=== PATIENT | male | born 1960 | race Caucasian/White ===

== ENCOUNTER 2019-01-25 18:20 | Inpatient (IN) ==
[2019-01-25] MEDS ORDERED: Clindamycin 600 MG/50 ML 600 MG/50 ML IV.SOLN IVPB ONE (19:26)
--- NOTE | 2019-01-25 19:33 | Emergency Department Note ---
Disposition Clinical Impression: Cellulitis of right anterior lower leg Disposition: Admitted As Inpatient Condition: Good Referrals: Rickey Simon MD [Primary Care Provider] - Time of Disposition: 20:50 Extremity Problem HPI - General Chief complaint: ED Extremity Problem,Nontraumatic Stated complaint: Cellulitis of lower right leg Time Seen by Provider: 01/25/19 18:44 Source: patient Mode of arrival: private vehicle Limitations: no limitations Nursing Notes Reviewed: Yes Vital Signs Reviewed: Yes - History of Present Illness HPI Narrative: Patient presents to the ED with concern that he may have cellulitis in his right leg again. He noticed that it was red today around noon was warm to the touch. He also developed some chills today and when he took his temperature at home was 101.9 around 5:30. He did not take any Tylenol or Motrin prior to coming to the ED. He does report some very mild discomfort in the leg. He had a bad case of cellulitis in this leg back in May and also developed an abscess that had to be drained requiring hospitalization. He has a history of venous stasis and has had several ulcers and infections in the past. Other medical history is only notable for high blood pressure. Pain Scale: 3 - Related Data Home Medications Medication Instructions Recorded Confirmed Atenolol/Chlorthalidone [Tenoretic 1 tab PO DAILY 05/12/18 01/25/19 100 Tablet] Cetirizine HCl [Zyrtec] 10 mg PO DAILY 01/25/19 01/25/19 Famotidine [Pepcid] 20 mg PO BID 01/25/19 01/25/19 Allergies Allergy/AdvReac Type Severity Reaction Status Date / Time ibuprofen [From Motrin IB] Allergy Rash Verified 01/25/19 18:27 Constitutional: Reports: as per HPI, fever, chills. Denies: weakness, weight change Eyes: Denies: eye pain, eye discharge, vision change ENT ED: Denies: ear pain, throat pain, dental pain, hearing loss, epistaxis, congestion, dysphagia Cardiovascular: Denies: chest pain, palpitations, dyspnea on exertion, edema, s yncope Respiratory: Denies: cough, dyspnea, wheezes, hemoptysis, stridor Gastrointestinal: Denies: abdominal pain, nausea, vomiting, diarrhea, constip ation, hematemesis, melena, hematochezia Genitourinary: Denies: urgency, dysuria, frequency, hematuria Musculoskeletal: Denies: back pain, neck pain, arthralgia, myalgia Integumentary: Reports: as per HPI (redness and warmth RLE) Neurological: Denies: headache, weakness, numbness, paresthesias, confusion, abnormal gait, vertigo Psychiatric: Denies: anxiety, depression, suicidal thoughts, homicidal thoughts, auditory hallucinations, visual hallucinations Endocrine: Denies: fatigue Hematological/Lymphatic: Denies: easy bleeding, easy bruising Allergic/Immunologic: Denies: facial swelling, urticaria Past Medical History - Past Medical History Medical history: Reports: hypertension, other Surgical history: Reports: orthopedic, other Psychiatric history: Reports: no psych history - Social History Smoking Status: Never smoker Smokeless Tobacco Status: No Alcohol use: Reports: rarely Drug use: Reports: none Physical Exam - General Limitations: no limitations General appearance: alert, in no apparent distress, obese - Head Head exam: atraumatic, normocephalic, normal inspection - Eye Eye exam: Present: normal appearance, PERRL, EOMI - Neck Neck exam: Present: normal inspection, full ROM, trachea midline - Chest Chest inspection: Present: normal inspection, symmetric chest wall rise - Respiratory Respiratory exam: Present: normal lung sounds bilaterally - Cardiovascular Cardiovascular exam: Present: regular rate, normal rhythm, normal heart sounds - Abdominal Exam Abdominal exam: Present: soft, Non-Tender. Absent: tenderness, distention, guarding, rebound, rigidity - Extremities Exam Extremities exam: Present: full ROM, normal capillary refill - Expanded Lower Extremity Exam Knee exam: Present: normal inspection, full ROM Lower leg exam: Present: swelling (mild, bilaterally, 1+ pitting on R), erythema (and warmth to RLE) Ankle exam: Present: normal inspection, full ROM Foot/toe exam: Present: normal inspection, full ROM Neurovascular/Tendon exam: Absent: motor deficit, sensory deficit, tendon deficit - Neurological Exam Neurological exam: Present: alert, oriented X3 - Psychiatric Psychiatric exam: Present: normal affect, normal mood - Skin Skin exam: Present: warm, dry, intact, normal color Course Course Narrative: Patient presents to the ED complaining of redness, swelling, warmth in his right lower extremity along with fever and chills concerning for cellulitis. On arrival he has a low-grade temperature 99.9. He was initially very hypertensive on arrival but this improved with changing cuff and repeat measurements without intervention. Right lower extremity is very red and warm to the touch with skin changes consistent with cellulitis. No signs or symptoms concerning for DVT at this time. Laboratory studies will be performed given his reported fever and chills. Will go ahead and start with IV antibiotics. - Reevaluation(s) Reevaluation #1: Laboratory studies show leukocytosis with left shift. Discussed with patient admission for IV antibiotics and he reluctantly agreed. I spoke to hospitalist evp chief exploration officer, Dr. Phoenix, who has accepted the patient. Time: 21:07 Vital Signs Temperature 99.9 F H 01/25/19 18:21 Pulse Rate 82 01/25/19 18:21 Respiratory Rate 22 01/25/19 18:21 Blood Pressure 202/69 01/25/19 18:21 O2 Sat by Pulse Oximetry 91 01/25/19 18:21 Temperature 99.9 F H 01/25/19 18:21 Pulse Rate 75 01/25/19 20:19 Respiratory Rate 20 01/25/19 20:19 Blood Pressure 94/78 01/25/19 20:19 O2 Sat by Pulse Oximetry 95 01/25/19 20:19 Oxygen Delivery Oxygen Delivery Room Air Extremity Problem, Nontraumati - Differential Diagnosis Likely: cellulitis. Unlikely: deep venous thrombosis - Medical Records Medical records reviewed: Yes I reviewed the patient's medical records. - Lab Data Lab results reviewed: Yes I reviewed the patient's lab results. Result diagrams: 01/25/19 19:49 01/25/19 19:49 Lab Results 01/25/19 01/25/19 01/25/19 Range/Units 19:49 19:49 19:49 WBC 22.2 H (4.3-11.1) K/mcL RBC 4.73 (4.19-5.50) M/mcL Hgb 13.5 (12.9-16.9) g/dL Hct 41.5 (37.5-50.1) % MCV 87.7 (83.0-100.0) fL MCH 28.5 (28.0-33.3) pg MCHC 32.5 (31.6-35.5) g/dL RDW 13.2 (11.5-14.5) % Plt Count 229 (140-400) K/mcL MPV 9.8 (9.4-12.4) fL Immature Gran % 0.4 (0-4) % Seg Neutrophils % 93.3 % Lymphocytes % 1.8 % Monocytes % 4.3 % Eosinophils % 0.0 % Basophils % 0.2 % Neutrophils # 20.7 H (1.6-8.9) K/mcL Lymphocytes # 0.4 L (0.6-4.6) K/mcL Monocytes # 1.0 (0.0-1.3) K/mcL Eosinophils # 0.0 (0.0-0.6) K/mcL Basophils # 0.0 (0.0-0.2) K/mcL Sodium 134 L (136-145) mEq/L Potassium 3.8 (3.5-5.1) mEq/L Chloride 97 L (98-107) mEq/L Carbon Dioxide 29 (23-29) mEq/L BUN 18 (6-20) mg/dL Creatinine 1.33 H (0.70-1.30) mg/dL Est GFR ( Amer) > 60 (> 60) Est GFR (Non-Af Amer) 55 L (> 60) BUN/Creatinine Ratio 14 (6-26) Glucose 105 (70-105) mg/dL Calculated Osmolality 280 (280-300) Lactic Acid 1.4 (0.5-2.2) mmol/L Calcium 9.8 (8.6-10.3) mg/dL
[2019-01-25 20:04] LABS: Basophils % 0.2 %; Hematocrit 41.5 % (37.5-50.1); Hemoglobin 13.5 g/dL (12.9-16.9); Immature Granulocytes % 0.4 % (0-4); Lymphocytes # 0.4 K/mcL (0.6-4.6); Lymphocytes % 1.8 %; Mean Corpuscular HGB Conc 32.5 g/dL (31.6-35.5); Mean Corpuscular Hemoglobin 28.5 pg (28.0-33.3); Mean Corpuscular Volume 87.7 fL (83.0-100.0); Mean Platelet Volume 9.8 fL (9.4-12.4); Monocytes % 4.3 %; Neutrophils # 20.7 K/mcL (1.6-8.9); Platelet Count 229 K/mcL (140-400); Red Blood Count 4.73 M/mcL (4.19-5.50); Red Cell Distribution Width 13.2 % (11.5-14.5); Segmented Neutrophils % 93.3 %; White Blood Count 22.2 K/mcL (4.3-11.1)
[2019-01-25 20:22] LABS: BUN/Creatinine Ratio 14 (6-26); Blood Urea Nitrogen 18 mg/dL (6-20); Calcium 9.8 mg/dL (8.6-10.3); Carbon Dioxide 29 mEq/L (23-29); Chloride 97 mEq/L (98-107); Glucose 105 mg/dL (70-105); Osmolality,Calculated 280 (280-300); Potassium 3.8 mEq/L (3.5-5.1); Sodium 134 mEq/L (136-145); eGFR For African Americans > 60 (> 60); eGFR For Non-African Americans 55 (> 60)
[2019-01-25] MEDS ORDERED: Clindamycin 600 MG/50 ML 600 MG/50 ML IV.SOLN IVPB SCH (21:00)
[2019-01-26] MEDS: Clindamycin 600 MG/50 ML 600 MG/50 ML IV.SOLN IVPB SCH ×3 (03:12→19:55)
[2019-01-26] MEDS ORDERED: Clindamycin 600 MG/50 ML 600 MG/50 ML IV.SOLN IVPB SCH (04:00)
[2019-01-26] MEDS: Famotidine 20 MG TABLET PO SCH ×2 (07:29→15:51)
[2019-01-26] MEDS: Loratadine 10 MG TABLET PO SCH (08:32)
--- NOTE | 2019-01-26 12:25 | Internal Med History&Physical ---
Date of Encounter: 01/26/19 Time of Encounter: 11:50 Assessment and Plan (1) Cellulitis of right anterior lower leg Current visit: Yes Status: Acute He has been started on IV clindamycin. Lactobacillus will be added. CT will be done to evaluate for recurrent abscess. (2) Azotemia Current visit: Yes Status: Acute Duration unknown. Creatinine was WNL at 1.04 on 05/14/2018. Hold a tenolol/chlorthalidone, start IV fluids, and monitor renal indices. (3) Gout Current visit: Yes Status: Chronic Asymptomatic at present. Recheck uric acid level in a.m. Qualifiers: Gout site: unspecified site Gout etiology: unspecified cause Chronicity: chronic Presence of tophus: without tophus Qualified Code(s): M1A.9XX0 - Chronic gout, unspecified, without tophus (tophi) (4) HTN (hypertension) Current visit: No Status: Chronic Hold atenolol/chlorthalidone due to azotemia. Start atenolol and monitor blood pressure. Qualifiers: Hypertension type: essential hypertension Qualified Code(s): I10 - Essential (primary) hypertension Internal Medicine - H&P: HPI Chief complaint: Right leg redness, fevers and chills Admitted From: Emergency Dept Plans for Post Hospital Care: Home History of present illness: Mr. Carr is a 58 year old male who came to emergency room stating he had onset of fevers and chills with headache approximately noon the day of admission. A few hours later he noticed redness developing in the right lower leg. He came to emergency room and was evaluated and was found to have cellulitis of the right leg. He had significant leukocytosis with left shift present on differential. He was started on IV antibiotics and admitted to [facility] floor for ongoing care needs. He had a 5.7 x 1.2 cm abscess drained from the right lower 05/12/2018. Culture grew group C streptococcus. He denies any injury or trauma to the right lower leg. He has had no recurrent cellulitis since the May 2018 incident. Musko skeletal history is significant for gout, left hip replacement 2004, right hip replacement 2014, and left knee meniscus surgery and injection. Past Med Surg Social Fam HX - Past Medical History Medical history: hypertension, other Additional medical history: venous stasis Psychiatric history: no psych history - Past Surgical History Surgical History: orthopedic, other Additional surgical history: bilateral hips. left knee - Social History Smoking Status: Never smoker Smokeless Tobacco Status: No Alcohol use: rarely Drug use: none Internal Medicine - H&P: Meds Atenolol/Chlorthalidone [Tenoretic 100 Tablet] 1 tab PO DAILY 05/12/18 [History] Cetirizine HCl [Zyrtec] 10 mg PO DAILY 01/25/19 [History] Famotidine [Pepcid] 20 mg PO BID 01/25/19 [History] Allergy/AdvReac Type Severity Reaction Status Date / Time ibuprofen [From Motrin IB] Allergy Rash Verified 01/25/19 18:27 All Systems PM: A 10-system review of systems was performed and is negative for pertinent findings except as documented above in the HPI. Review of systems: Gen.: His weight has remained stable at approximately 195 kg since April [address] [facility] hospitalization. Cardiovascular: He has history of hypertension but denies UT heart failure angina DVT or pulmonary embolus. He has dyspnea on exertion. Respiratory: He is a lifelong nonsmoker and denies chronic lung disease GI: He denies disorders of his liver gallbladder or exocrine pancreas : He denies hematuria dysuria or kidney stones Neurologic: He denies large distribution strokes or seizures. Endocrine: He denies diabetes thyroid disease or hyperlipidemia Hematology/oncology: He denies blood disorders cancers or anemia Psychiatric: He denies anxiety depression or other mental health issues. Musko skeletal: As per history of present illness Dermatologic: He has been diagnosed with psoriasis and follows with a real estate executive assistant as needed. - Constitutional Vitals: Temp Pulse Resp BP Pulse Ox 100.0 F H 58 17 138/71 95 01/26/19 10:56 01/26/19 10:56 01/26/19 10:56 01/26/19 10:56 01/26/19 10:56 Exam: Gen.: He is well-developed obese male lying in bed who appears in no acute distress HEENT: Head is atraumatic and normocephalic. Eyes: EOMI. There is no scleral icterus. Mouth: Mucosa is moist. Neck: Supple and nontender. There is no thyromegaly or adenopathy noted. Heart: Regular without murmurs gallops or ectopics Lungs: No wheezes or crackles are heard. Abdomen: Soft and nontender. No masses or guarding are noted. Extremities: There is significant erythema on nearly all of the right lower leg. No vesicles or drainage areas are seen. The foot is not involved. He has tinea pedis in the interdigital area between the third and fourth toes on the right foot. No open areas are noted otherwise on the right lower leg. The left leg shows chronic venous stasis pigmentation changes. Neurologic: Mental status: He is talkative and a good historian. Cranial nerves: Smile is symmetric. Forehead wrinkles bilaterally. Tongue protrudes midline. EOMI. Motor: There is no pronator drift. Cerebellar: Finger to nose is intact bilaterally. Skin: Warm and dry Internal Med - H&P Results - Labs CBC & Chem 7: 01/25/19 19:49 01/25/19 19:49 Labs: Short CBC 01/25/19 Range/Units 19:49 WBC 22.2 H (4.3-11.1) K/mcL Hgb 13.5 (12.9-16.9) g/dL Hct 41.5 (37.5-50.1) % Plt Count 229 (140-400) K/mcL Neutrophils # 20.7 H (1.6-8.9) K/mcL BMP 01/25/19 19:49 Sodium 134 L Potassium 3.8 Chloride 97 L Carbon Dioxide 29 BUN 18 Creatinine 1.33 H Glucose 105 Calcium 9.8 - VTE Reasons for not Prescribing Prophylaxis: Treatment not Indicated - Low risk for VTE
[2019-01-26] MEDS: 0.45 % Sodium Chloride w/KCl 20 MEQ/1,000 ML MLS IVC SCH (15:52)
[2019-01-26] MEDS: Lactobacillus 1 EACH CAP.SPRINK PO SCH (19:54)
[2019-01-27] MEDS: 0.45 % Sodium Chloride w/KCl 20 MEQ/1,000 ML MLS IVC SCH ×2 (01:06→11:04)
[2019-01-27] MEDS: Clindamycin 600 MG/50 ML 600 MG/50 ML IV.SOLN IVPB SCH ×3 (04:35→19:48)
[2019-01-27] MEDS: *HR* Enoxaparin 40 MG/0.4 ML SYRINGE SQ SCH (04:40)
[2019-01-27] MEDS: Lactobacillus 1 EACH CAP.SPRINK PO SCH ×2 (08:09→19:49)
[2019-01-27] MEDS: Loratadine 10 MG TABLET PO SCH (08:10)
[2019-01-27] MEDS: Famotidine 20 MG TABLET PO SCH ×2 (08:10→16:36)
[2019-01-27 10:26] LABS: Basophils % 0.3 %; Eosinophils # 0.1 K/mcL (0.0-0.6); Eosinophils % 0.6 %; Hematocrit 36.8 % (37.5-50.1); Hemoglobin 12.4 g/dL (12.9-16.9); Immature Granulocytes % 0.6 % (0-4); Lymphocytes # 0.5 K/mcL (0.6-4.6); Lymphocytes % 4.6 %; Mean Corpuscular HGB Conc 33.7 g/dL (31.6-35.5); Mean Corpuscular Hemoglobin 29.1 pg (28.0-33.3); Mean Corpuscular Volume 86.4 fL (83.0-100.0); Mean Platelet Volume 10.3 fL (9.4-12.4); Monocytes # 0.7 K/mcL (0.0-1.3); Monocytes % 6.8 %; Neutrophils # 9.4 K/mcL (1.6-8.9); Platelet Count 172 K/mcL (140-400); Red Blood Count 4.26 M/mcL (4.19-5.50); Red Cell Distribution Width 13.6 % (11.5-14.5); Segmented Neutrophils % 87.1 %; White Blood Count 10.8 K/mcL (4.3-11.1)
[2019-01-27 10:43] LABS: BUN/Creatinine Ratio 13 (6-26); Blood Urea Nitrogen 14 mg/dL (6-20); Calcium 9.1 mg/dL (8.6-10.3); Carbon Dioxide 26 mEq/L (23-29); Chloride 96 mEq/L (98-107); Glucose 162 mg/dL (70-105); Osmolality,Calculated 270 (280-300); Potassium 3.4 mEq/L (3.5-5.1); Sodium 128 mEq/L (136-145); eGFR For African Americans > 60 (> 60); eGFR For Non-African Americans > 60 (> 60)
--- NOTE | 2019-01-27 15:14 | Internal Med Progress Note ---
Date of Encounter: 01/27/19 Time of Encounter: 15:05 - Assessment and plan (1) Cellulitis of right anterior lower leg Current Visit: Yes Status: Acute Assessment and plan: January 27. Continue clindamycin and Lactobacillus. CT scan showed no evidence of abscess. (2) Azotemia Current Visit: Yes Status: Acute Assessment and plan: January 27. BUN and creatinine decreased to 14 and 1.12 respectively with estimated GFR > 60. Continue present Rx. (3) Gout Current Visit: Yes Status: Chronic Assessment and plan: January 27. Asymptomatic. Check uric acid level in a.m. Qualifiers: Gout site: unspecified site Gout etiology: unspecified cause Chronicity: chronic Presence of tophus: without tophus Qualified Code(s): M1A.9XX0 - Chronic gout, unspecified, without tophus (tophi) (4) HTN (hypertension) Current Visit: No Status: Chronic Assessment and plan: January 27. Continue atenolol and remain off chlorthalidone. Qualifiers: Hypertension type: essential hypertension Qualified Code(s): I10 - Essential (primary) hypertension (5) Hypokalemia Current Visit: Yes Status: Acute Assessment and plan: January 27. Potassium level has decreased to 3.4 today. Rx potassium supplement and recheck labs in a.m. (6) Anemia Current Visit: Yes Status: Acute Assessment and plan: January 27. Hemoglobin has decreased to 12.4. Anemia testing will be ordered. Qualifiers: Anemia type: unspecified type Qualified Code(s): D64.9 - Anemia, unspecified - Subjective Interval history: January 27. He has no new complaints and feels better. - Constitutional Vitals: Temp Pulse Resp BP Pulse Ox 98.7 F 58 24 155/76 95 01/27/19 07:08 01/27/19 07:08 01/27/19 07:08 01/27/19 07:08 01/27/19 07:08 Exam: He is resting comfortably on the side of bed and appears in no acute distress. The right lower leg shows slight regression of the erythema margins. There is a shallow draining ulcer approximately 1 cm maximum diameter in the right lower anterolateral christensen. He also has a shallow ulcer on his left gluteal area approximately 12 mm diameter without drainage. I reviewed his medications and lab results. Internal Medicine: Result - Labs CBC & Chem 7: 01/27/19 10:17 01/27/19 10:17 Labs: Short CBC 01/27/19 Range/Units 10:17 WBC 10.8 D (4.3-11.1) K/mcL Hgb 12.4 L (12.9-16.9) g/dL Hct 36.8 L (37.5-50.1) % Plt Count 172 (140-400) K/mcL Neutrophils # 9.4 H (1.6-8.9) K/mcL BMP 01/27/19 10:17 Sodium 128 L Potassium 3.4 L Chloride 96 L Carbon Dioxide 26 BUN 14 Creatinine 1.12 Glucose 162 H Calcium 9.1 - VTE Reasons for not Prescribing Prophylaxis: Treatment not Indicated - Low risk for VTE Consult Discharge Plan - Plan Referrals: Rickey Simon MD [Primary Care Provider] - 1 week
[2019-01-27] MEDS ORDERED: 0.45 % Sodium Chloride w/KCl 20 MEQ/1,000 ML MLS IVC SCH (15:30)
[2019-01-27 20:32] LABS: % Iron Saturation 9 % (20-55); Iron 24 mcg/dL (65-175); Transferrin 187 mg/dL (203-362)
[2019-01-27 20:51] LABS: Ferritin 235 ng/mL (20-250)
[2019-01-28] MEDS: *HR* Enoxaparin 40 MG/0.4 ML SYRINGE SQ SCH (05:08)
[2019-01-28] MEDS: Clindamycin 600 MG/50 ML 600 MG/50 ML IV.SOLN IVPB SCH (05:08)
[2019-01-28 06:43] VITALS: BP 143/84
[2019-01-28 07:27] LABS: Basophils % 0.2 %; Eosinophils # 0.2 K/mcL (0.0-0.6); Eosinophils % 1.9 %; Hematocrit 35.9 % (37.5-50.1); Hemoglobin 11.6 g/dL (12.9-16.9); Lymphocytes # 0.9 K/mcL (0.6-4.6); Lymphocytes % 10.7 %; Mean Corpuscular HGB Conc 32.3 g/dL (31.6-35.5); Mean Corpuscular Hemoglobin 28.4 pg (28.0-33.3); Mean Corpuscular Volume 87.8 fL (83.0-100.0); Mean Platelet Volume 10.6 fL (9.4-12.4); Monocytes # 0.9 K/mcL (0.0-1.3); Monocytes % 10.8 %; Neutrophils # 6.3 K/mcL (1.6-8.9); Platelet Count 181 K/mcL (140-400); Red Blood Count 4.09 M/mcL (4.19-5.50); Red Cell Distribution Width 13.4 % (11.5-14.5); Segmented Neutrophils % 75.4 %; White Blood Count 8.3 K/mcL (4.3-11.1)
[2019-01-28 07:47] LABS: BUN/Creatinine Ratio 14 (6-26); Blood Urea Nitrogen 15 mg/dL (6-20); Calcium 8.8 mg/dL (8.6-10.3); Carbon Dioxide 30 mEq/L (23-29); Chloride 99 mEq/L (98-107); Glucose 115 mg/dL (70-105); Magnesium 1.8 mg/dL (1.6-2.6); Osmolality,Calculated 280 (280-300); Potassium 3.6 mEq/L (3.5-5.1); Sodium 134 mEq/L (136-145); Uric Acid 8.2 mg/dL (2.3-7.6); eGFR For African Americans > 60 (> 60); eGFR For Non-African Americans > 60 (> 60)
[2019-01-28] MEDS: Loratadine 10 MG TABLET PO SCH (08:01)
[2019-01-28] MEDS: Famotidine 20 MG TABLET PO SCH (08:01)
[2019-01-28] MEDS: Lactobacillus 1 EACH CAP.SPRINK PO SCH (08:01)
--- NOTE | 2019-01-28 09:55 | Discharge Summary ---
Orders not resulted at time of discharge: Pending orders 01/25/19 19:49 Blood Culture [Culture,Blood] [] Stat Date of Encounter: 01/28/19 Time of Encounter: 09:35 - Discharge Diagnosis (1) Cellulitis of right anterior lower leg Priority: Primary Status: Acute (2) Azotemia Priority: Secondary Status: Resolved (3) Gout Priority: Secondary Status: Chronic Qualifiers: Gout site: unspecified site Gout etiology: unspecified cause Chronicity: chronic Presence of tophus: without tophus Qualified Code(s): M1A.9XX0 - Chronic gout, unspecified, without tophus (tophi) (4) HTN (hypertension) Priority: Secondary Status: Chronic Qualifiers: Hypertension type: essential hypertension Qualified Code(s): I10 - Essential (primary) hypertension (5) Hypokalemia Priority: Secondary Status: Resolved (6) Anemia Priority: Secondary Status: Acute Qualifiers: Anemia type: unspecified type Qualified Code(s): D64.9 - Anemia, unspecified Hospital course: Mr. Carr is a 58 year old male who came to emergency room stating he had onset of fevers and chills with headache approximately noon the day of admission. A few hours later he noticed redness developing in the right lower leg. He came to emergency room and was evaluated and was found to have cellulitis of the right leg. He had significant leukocytosis with left shift present on differential. He was started on IV antibiotics and admitted to [facility] floor for ongoing care needs. Initial orders were written by the emergency room physician. I saw him on January 26 performed a history and physical. He was started on IV clindamycin. Lactobacillus was given. CT was done to evaluate for abscess but showed no evidence of abscess. He had clinical improvement with normalization of WBC and resolution of left shift by day of discharge. There was gradual regression of the right lower leg erythema margins. He will continue with antibiotic and probiotic for 7 days at discharge. His PCP can determine if additional antibiotic duration is needed. Atenolol/chlorthalidone was discontinued and IV fluids were given. Azotemia resolved with BUN and creatinine decreasing to 15 and 1.10 respectively by day of discharge with estimated GFR> 60. He will remain off atenolol/chlorthalidone at discharge. He will start atenolol 50 mg bid and lisinopril 10 mg daily will be added. Uric acid level returned elevated at 8.2. He will be prescribed allopurinol 100 milligrams daily. His PCP can monitor uric acid levels and adjust dose as needed. Hemoglobin decreased to 11.6 by day of discharge. Anemia testing showed iron 24, transferrin saturation 9%, transferrin 187, and ferritin 235. He will be prescribed ferrous sulfate with ascorbic acid. B12 and folate levels are pending at time of discharge. His PCP can follow up on these and see if additional supplementation Rx is needed and determine if further workup for the iron deficiency anemia such as colonoscopy etc. is needed. He remained afebrile the last 24 hours of hospitalization and felt stable for discharge home on January 28. He will follow with his PCP Dr. Rickey Simon within 1 week. - Time Spent with Patient Total time spent providing and/or coordinating discharge services: - Discharge Medications Prescriptions: New Clindamycin HCl 300 mg PO Q8H #21 capsule Lactobacillus [Culturelle] 1 each PO BID #14 cap.sprink Ferrous Sulfate 325 mg PO DAILY #30 tablet Atenolol [Tenormin] 50 mg PO BID #60 tablet Ascorbic Acid [Vitamin C] 500 mg PO DAILY #30 tablet Lisinopril [Zestril] 10 mg PO DAILY #30 tablet Allopurinol [Zyloprim 100 MG] 100 mg PO DAILY #30 tablet Changed Famotidine [Pepcid] 20 mg PO BID PRN #0 PRN Reason: Dyspepsia Cetirizine HCl [Zyrtec] 10 mg PO DAILY PRN #0 PRN Reason: Allergy Symptoms Discontinued Atenolol/Chlorthalidone [Tenoretic 100 Tablet] 1 tab PO DAILY Home Medications: Allopurinol [Zyloprim 100 MG] 100 mg PO DAILY #30 tablet 01/28/19 [Rx] Ascorbic Acid [Vitamin C] 500 mg PO DAILY #30 tablet 01/28/19 [Rx] Atenolol [Tenormin] 50 mg PO BID #60 tablet 01/28/19 [Rx] Cetirizine HCl [Zyrtec] 10 mg PO DAILY PRN #0 01/28/19 [Rx] Clindamycin HCl 300 mg PO Q8H #21 capsule 01/28/19 [Rx] Famotidine [Pepcid] 20 mg PO BID PRN #0 01/28/19 [Rx] Ferrous Sulfate 325 mg PO DAILY #30 tablet 01/28/19 [Rx] Lactobacillus [Culturelle] 1 each PO BID #14 cap.sprink 01/28/19 [Rx] Lisinopril [Zestril] 10 mg PO DAILY #30 tablet 01/28/19 [Rx] Allergies/Adverse Reactions: Allergy/AdvReac Type Severity Reaction Status Date / Time ibuprofen [From Motrin IB] Allergy Rash Verified 01/25/19 18:27 Date of admission: 01/26/19 13:02 Primary care physician: Rcikey Simon MD - Constitutional Vitals: Temp Pulse Resp BP Pulse Ox 98.6 F 60 17 143/84 95 01/28/19 06:42 01/28/19 06:42 01/28/19 06:42 01/28/19 06:42 01/28/19 06:42 - Patient Status Disposition: Home, Self-Care Condition: Good - Discharge Instructions Follow Up With: Rickey Simon MD [Primary Care Provider] - 1 week - Diet and Activity Activity: resume usual activities as tolerated Diet: advance to your usual diet - VTE Reasons for not Prescribing Prophylaxis: Treatment not Indicated - Low risk for VTE
[2019-01-28 09:57] LABS: Folate 22.3 ng/mL (3.0-16.0)
== END 2019-01-28 11:00 | disposition home or self-care (01) | DRG 603 ==
LOC: EMEROOPIK 18:20 → INPPIK 18:20
PROVIDERS: ADMIT Internal Medicine; ATTEND Internal Medicine